=== PATIENT | male | born 1960 | race Caucasian/White ===

== ENCOUNTER 2023-03-04 00:41 | Emergency (ER) | payer MEDICARE, SELFPAY ==
[2023-03-04 00:41] VITALS: BP 155/78; PULSE 63; RESP 16; TEMP 36.8; O2SAT 95; BMI 31.5
--- NOTE | 2023-03-04 00:43 | HMH.EDFALL ---
Discharge Plan Disposition Patient Disposition: Home, Self-Care Chief Complaint: Fall Prescriptions Prescriptions: No Action duloxetine 20 mg capsule,delayed release(DR/EC) 20 mg PO DAILY omeprazole 20 mg capsule,delayed release(DR/EC) 20 mg PO DAILY metoprolol succinate 50 mg tablet extended release 24 hr 50 mg PO DAILY lisinopril 20 mg tablet 20 mg PO DAILY aspirin [Adult Aspirin Regimen] 81 mg tablet,delayed release (DR/EC) 81 mg PO DAILY albuterol sulfate 90 mcg/actuation HFA aerosol inhaler 2 puff inhalation Q6H PRN (Reason: Shortness Of Breath Or Wheezing) simvastatin 20 mg tablet 20 mg PO DAILY Referrals Follow up/Referrals: Karsten Carpenter MD [Primary Care Provider] - See instructions Activity Restrictions/Add. Instructions Additional Instructions/Restrictions: Follow-up with your primary care doctor as needed. Return to the emergency department immediately if symptoms worsen in any way. Clinical Impressions Clinical Impression: Contusion of scalp, COPD exacerbation Instructions Patient Instructions: Contusion Discharge ED Provider: Cecille Gooden HPI General Chief Complaint: Fall Stated Complaint: fall Time Seen by Provider: 03/04/23 00:44 Mode of Arrival: EMS Source of Information: Patient and EMS History of Present Illness HPI Narrative: The patient presents to the emergency department via ambulance after having fallen at [facility]. The patient struck his head. He denies loss of consciousness. He is a smoker. He was homeless prior to February 21 when he moved into [facility]. Related Data Home Medications Medication Instructions Recorded Confirmed albuterol sulfate 90 mcg/actuation 2 puff inhalation Q6H PRN 02/21/23 03/04/23 aerosol inhaler Shortness Of Breath Or Wheezing aspirin 81 mg tablet,delayed 81 mg PO DAILY Blood thinner 02/21/23 03/04/23 release (Adult Aspirin Regimen) duloxetine 20 mg capsule,delayed 20 mg PO DAILY Depression 02/21/23 03/04/23 release lisinopril 20 mg tablet 20 mg PO DAILY High blood pressure 02/21/23 03/04/23 metoprolol succinate 50 mg 50 mg PO DAILY High blood pressure 02/21/23 03/04/23 tablet,extended release 24 hr omeprazole 20 mg capsule,delayed 20 mg PO DAILY gerd 02/21/23 03/04/23 release simvastatin 20 mg tablet 20 mg PO DAILY High cholesterol 02/21/23 03/04/23 Allergies Allergy/AdvReac Type Severity Reaction Status Date / Time No Known Allergies Allergy Verified 02/21/23 13:06 [facility] Disclaimer: The information contained in this section may have been updated after the patient was seen, as this information can be updated by other users. Medical History (Updated 03/04/23 @ 01:10 by Cecille Gooden MD) AC (acromioclavicular) joint bone spurs Acid reflux Blockage of coronary artery of heart COPD (chronic obstructive pulmonary disease) Depression Hypertension Partial deafness of left ear Surgical History (Updated 02/21/23 @ 13:15 by LAMAR Khan) H/O left heart catheterization by ventricular puncture Family History (Updated 02/21/23 @ 13:17 by LAMAR Khan) Other Alcoholism Cancer Coronary artery disease Diabetes Heart attack Hyperlipidemia Hypertension Stroke Social History (Updated 02/21/23 @ 13:18 by LAMAR Khan) Smoking Status: Current every day smoker alcohol intake: current substance use type: denies use current occupational status: disabled Travel in the last 8 weeks: None ROS Obtained: Yes All systems reviewed & no additional complaints except as documented Physical Exam General General appearance: alert Head Head exam: other (There is a tender area to the right posterior parietal area. There are no lacerations. There are no large hematomas. There are no step-offs.) Eye Eye exam: Present normal appearance ENT ENT exam: Present normal exam Neck Neck exam: Present normal in
--- NOTE | 2023-03-04 00:45 | CT_ITS ---
PROCEDURE INFORMATION: Exam: CT Head Without Contrast Exam date and time: 03/04/2023 12:52 AM Age: 62 years old Clinical indication: Injury or trauma; Fall; Additional info: Fall with head injury TECHNIQUE: Imaging protocol: Computed tomography of the head without contrast. Radiation optimization: All CT scans at this facility use at least one of these dose optimization techniques: automated exposure control; mA and/or kV adjustment per patient size (includes targeted exams where dose is matched to clinical indication); or iterative reconstruction. REPORTING DATA: Count of CT and Cardiac NM exams in prior 12 months: This patient has received 0 known CTs and 0 known cardiac nuclear medicine studies in the 12 months prior to the current study. COMPARISON: No relevant prior studies available. FINDINGS: Brain: [id number] periventricular white matter hypodensities are identified. There is no evidence of acute parenchymal hemorrhage, extra-axial collection, or acute infarction. There is no mass effect, midline shift, or downward herniation. Cerebral ventricles: No ventriculomegaly. Paranasal sinuses: Visualized sinuses are unremarkable. No fluid levels. Mastoid air cells: There is opacification of the right middle ear cavity and mastoid air cells. Bones/joints: There is moderate paranasal sinus disease. Soft tissues: Unremarkable. IMPRESSION: 1. No evidence of acute intracranial process. 2. Mild to moderate white matter hypodensities. Differential considerations include chronic microvascular ischemic change, demyelinating disease, or gliosis from infectious/inflammatory source. 3. Right otitis/mastoiditis of unknown chronicity. 4. Moderate sinus disease.
--- NOTE | 2023-03-04 00:52 | PC.NURSE ---
PT gone to RAD via stretcher
--- NOTE | 2023-03-04 00:54 | PC.NURSE ---
Pt back from RAD
--- NOTE | 2023-03-04 00:55 | PC.NURSE ---
RT at BS to administer breathing treatment
[2023-03-04 01:00] VITALS: BP 171/95; PULSE 60; O2SAT 100
[2023-03-04 01:06] VITALS: PULSE 84; PULSE 87
--- NOTE | 2023-03-04 01:09 | PC.NURSE ---
Dr. Gooden at
[2023-03-04 01:10] VITALS: BP 149/87; PULSE 81; RESP 16; TEMP 36.8; O2SAT 97
--- NOTE | 2023-03-04 01:12 | PC.NURSE ---
Called [facility] to advise pt was ready to return, they advised we will have to figure out arrangements because there is no way any of us can leave to come get him. We will have to call aisha.
--- NOTE | 2023-03-04 01:18 | PC.NURSE ---
Received phone call back from Sophy Davis at [facility] she advised, I called [facility] and the only person they have that can drive is their med tech and she doesn't have a car, so I don't know how we will get him back unless we call the PD. Advised her I would speak with my charge nurse and let her know when we make arrangements.
[2023-03-04 01:30] VITALS: BP 158/83; PULSE 67; O2SAT 97
--- NOTE | 2023-03-04 01:38 | PC.NURSE ---
S/W Police department and at this time they are unable to provide transport. They will update us on any changes.
--- NOTE | 2023-03-04 02:15 | PC.NURSE ---
PD reports they may be able to take resident back to [facility] but it will be some time . Pt resting quietly in bed.
--- NOTE | 2023-03-04 03:33 | PC.NURSE ---
Pt resting in bed. Police advised they would be able to transport him but they are not available at this time.
--- NOTE | 2023-03-04 04:00 | PC.NURSE ---
[facility] called for a pt update. Let them know once again, pt is ready for d/c however they continue to report The Police can bring him back, we don't have anyone who can drive here . Let them know PD are not able to do so. Updated them on pt's d/c dx & instructions.
--- NOTE | 2023-03-04 04:20 | PC.NURSE ---
Assisted pt to the bathroom, he tolerated ambulating with SBA and a cane well. He was given a drink and laid back in bed. Let him know we are continuing to wait for PD or [facility] staff to be able to get pt back home. Offered another warm blanket, he declined at this time.
--- NOTE | 2023-03-04 06:05 | PC.NURSE ---
s/w [facility] and they report someone should be arriving to get the patient after 0630 when the next shift arrives with a car . Pt updated with this information.
== END 2023-03-04 07:26 | disposition home or self-care (01) ==
PROVIDERS: Emergency Provider Emergency Medicine; PCP Emergency Medicine
DX: J44.1 Chronic obstructive pulmonary disease with (acute) exacerbation (principal); S00.03XA Contusion of scalp, initial encounter; F17.200 Nicotine dependence, unspecified, uncomplicated; W19.XXXA Unspecified fall, initial encounter
CPT/HCPCS: 70450; 99284

== ENCOUNTER 2023-03-18 23:41 | Emergency (ER) | payer MEDICARE, SELFPAY ==
[2023-03-18 23:41] VITALS: BP 132/70; PULSE 60; RESP 19; TEMP 36.7; O2SAT 96; BMI 25.1
--- NOTE | 2023-03-19 00:24 | PC.NURSE ---
Spoke with Aggie from [facility], she advised that she had reached out to management, management general education professor, and day shift staff, and no one would be able to come tack picker the patient when he is discharged. She advised that she did not know what to do. Charge nurse notified at this time.
--- NOTE | 2023-03-19 00:55 | HMH.EDEAR ---
Discharge Plan Disposition Patient Disposition: Home, Self-Care Condition: Good Prescriptions Prescriptions: New ofloxacin 0.3 % drops 10 drp otic (ear) DAILY 7 Days Qty: 5 0RF No Action duloxetine 20 mg capsule,delayed release(DR/EC) 20 mg PO DAILY omeprazole 20 mg capsule,delayed release(DR/EC) 20 mg PO DAILY metoprolol succinate 50 mg tablet extended release 24 hr 50 mg PO DAILY lisinopril 20 mg tablet 20 mg PO DAILY aspirin [Adult Aspirin Regimen] 81 mg tablet,delayed release (DR/EC) 81 mg PO DAILY albuterol sulfate 90 mcg/actuation HFA aerosol inhaler 2 puff inhalation Q6H PRN (Reason: Shortness Of Breath Or Wheezing) simvastatin 20 mg tablet 20 mg PO DAILY Referrals Follow up/Referrals: Karsten Carpenter MD [Primary Care Provider] - See instructions Activity Restrictions/Add. Instructions Additional Instructions/Restrictions: Use the topical antibiotics for your external ear irritation and drainage. If you are going to put something in your ear please use a cotton ball as it is more easily retrieved than strips of paper. Clinical Impressions Clinical Impression: Otitis media, Ear foreign body Instructions Patient Instructions: Middle Ear Infection Discharge ED Provider: Ancelmo Sloan Ear HPI General Chief complaint: Ear Stated complaint: Toilet paper in ear Time Seen by Provider: 03/19/23 00:44 Mode of Arrival: EMS Source of Information: Patient, EMS and Medical Record Limitations: No Limitations Description of Symptoms (Recalled from ER Triage Doc. by RN): Pt c/o R ear pain and drainage. States he had stinky stuff coming from the R ear and decided to stuff toilet paper into his ear canal. Staff was unable to get it out thus called for transfer to ER. History of Present Illness HPI Narrative: 62-year-old male presents with complaint of ear pain to the right ear states that this caused him to be placing toilet paper in the ear he forgot about it and got in the shower it got wet it would not come back out. He is having no acute pain at this time. Denies fevers chills or body aches Related Data Home Medications Medication Instructions Recorded Confirmed albuterol sulfate 90 mcg/actuation 2 puff inhalation Q6H PRN 02/21/23 03/04/23 aerosol inhaler Shortness Of Breath Or Wheezing aspirin 81 mg tablet,delayed 81 mg PO DAILY Blood thinner 02/21/23 03/04/23 release (Adult Aspirin Regimen) duloxetine 20 mg capsule,delayed 20 mg PO DAILY Depression 02/21/23 03/04/23 release lisinopril 20 mg tablet 20 mg PO DAILY High blood pressure 02/21/23 03/04/23 metoprolol succinate 50 mg 50 mg PO DAILY High blood pressure 02/21/23 03/04/23 tablet,extended release 24 hr omeprazole 20 mg capsule,delayed 20 mg PO DAILY gerd 02/21/23 03/04/23 release simvastatin 20 mg tablet 20 mg PO DAILY High cholesterol 02/21/23 03/04/23 Previous Rx's Medication Instructions Recorded ofloxacin 0.3 % ear drops 10 drp otic (ear) DAILY 7 days #5 03/19/23 mL Allergies Allergy/AdvReac Type Severity Reaction Status Date / Time No Known Allergies Allergy Verified 02/21/23 13:06 [facility] Disclaimer: The information contained in this section may have been updated after the patient was seen, as this information can be updated by other users. Medical History (Updated 03/19/23 @ 00:59 by Ancelmo Sloan MD) AC (acromioclavicular) joint bone spurs Acid reflux Blockage of coronary artery of heart COPD (chronic obstructive pulmonary disease) Depression Hypertension Partial deafness of left ear Surgical History (Updated 02/21/23 @ 13:15 by LAMAR Khan) H/O left heart catheterization by ventricular puncture Family History (Updated 02/21/23 @ 13:17 by LAMAR Khan) Other Alcoholism Cancer Coronary artery disease Diabetes Heart attack Hyperlipidemia Hypertension Stroke Social History (Updated 02/21/23 @ 13:1
--- NOTE | 2023-03-19 01:08 | PC.NURSE ---
Called [facility] to see if they would be available to help get pt back to [facility]. They are placing a call out to their officers and will call back.
[2023-03-19 01:20] VITALS: BP 129/78; PULSE 60; RESP 16; TEMP 36.7; O2SAT 99
== END 2023-03-19 01:22 | disposition home or self-care (01) ==
PROVIDERS: Emergency Provider Student in an Organized Health Care Education/Training Program; PCP Emergency Medicine
DX: H66.90 Otitis media, unspecified, unspecified ear (principal); T16.1XXA Foreign body in right ear, initial encounter; F17.200 Nicotine dependence, unspecified, uncomplicated
CPT/HCPCS: 69200; 99283; 99284